=== PATIENT | male | born 1955 | race Caucasian/White ===

== ENCOUNTER 2025-04-21 08:00 | Outpatient (RCR) | payer MEDICARE, OTHER, SELFPAY ==
--- NOTE | 2025-03-07 12:52 | PTOPEVAL1 ---
Assessment and note entered by Anamaria Sorensne, PT Evaluation Information Assessment Status Evaluation Diagnosis pain in left shoulder and right knee ICD-10 Condition Codes (PT) Pain in left shoulder M25.512,Pain in right knee M25.561 Subjective Information Left shoulder hurt it playing golf about two months ago. Was swinging a golf club and had a pain but didn't quit, about 4 more holes. Reaching overhead is still somewhat bothersome. Reaching overhead and pulling himself into tractor is more painful. Right knee pain has been bothering over year off and on, actually both bother off and on. Got a steroid shot about two weeks ago and this really help both the arm and the knee. Previously, walking a lot on treadmill of out golfing would hurt knee. Getting into tractor previously right knee would hurt. Reported Pain Level Pain Score 0,0: Self Report Assessment PT Clinical Summary Pt presents with left shoulder pain and right knee pain. He received a steroid shot about two weeks ago and notes this improved both greatly. Evaluation today shows mildly reduced flexion and abduction of the left shoulder, but multiple (+) tests suggesting RTC or labral involvement. Right knee testing shows tight iliotibial band, tight quads, laterally deviated patella likely causing irritation with use. No special testing suggestive of anatomical damage for right knee. Pt will benefit from physical therapy to address deficits, correct alignment and postures, and educate/ promote independent maintenance to minimize flare ups in the future. Plan of Care Interventions Electrical Stimulation,Hot Pack/Cold Pack,Manual Therapy,Neuro Re-education,Patient/Caregiver Education,Therapeutic Activities,Therapeutic Exercise,Self-Care/Home Management,Ultrasound, Other Other Interventions Taping, Bracing PT Services Indicated Yes Treatment Frequency and 1-2x weekly x 10 visits Duration These treatments will address the objective and functional deficits as defined above. The patient will be advanced safely and appropriately in order for the patient to progress towards his/her prior level of function. Additional exercises will be introduced and as well as a comprehensive home exercise program upon discharge, if needed, ?to ensure carryover of functional gains achieved in the clinic. This treatment plan has been reviewed and agreement upon by the patient.
--- NOTE | 2025-03-07 12:52 | OPREHPOC ---
Outpatient Therapy Plan of Care This is a Multidisciplinary Plan of Care that may contain components documented by all disciplines (PT, OT, and ST.) PT Problem 1 PT Problem #1 Knowledge Deficit PT Goal 1 Goal / Goal Update Pt will be independent in HEP Pt will verbalize understanding of diagnosis and prognosis Target Visit 5 PT Problem 2 PT Problem #2 Impaired Strength PT Goal 1 Goal / Goal Update Pt will demonstrate LUE strength 5/5 in all tested planes without pain Target Visit 5 PT Problem 3 PT Problem #3 Impaired Range of Motion PT Goal 1 Goal / Goal Update LUE will demonstrate equal ROM to RUE without pain Target Visit 10 PT Problem 4 PT Problem #4 Impaired Functional Mobility PT Goal 1 Goal / Goal Update Pt will report ability to get into and out of tractor without pain Target Visit 10
--- NOTE | 2025-04-21 08:50 | PTOPDC ---
Assessment and note entered by Anamaria Sorensen, PT Evaluation Information Assessment Status Discharge Diagnosis pain in left shoulder and right knee ICD-10 Condition Codes (PT) Pain in left shoulder M25.512,Pain in right knee M25.561 Subjective Information Pt reports played gold last week and shoulder and knee did fine. Getting into and out of tractor are fine. Shoulder: 75% improved -more strength with the outer strengthening of the arm Knee: 100% improved Reported Pain Level Pain Score 0,0: Self Report Assessment PT Clinical Summary Pt reports significant improvement since starting therapy for his left shoulder and right knee. Reports knee is 100% improved, and shoulder is 75% improved with greatest pain at 1/10, and reports still needs strength with reaching out to the side and lifting. Reports he is s able to lift as heavy as he lifts up to waist height and he feels he can strengthen the rest independently. Pt's HEP was updated and he was educated on returning to therapy in the future if needed. Pt is thus being discharged from PT for completion of POC. Plan of Care PT Services Indicated No
== END 2025-04-21 08:54 | disposition home or self-care (01) ==
LOC: ANHHIPT 08:00
PROVIDERS: PCP Physician Assistant Medical; Visit Provider Physician Assistant Medical
DX: M25.512 Pain in left shoulder (principal); M25.561 Pain in right knee
CPT/HCPCS: 97110; 97112; 97161; 97530; 97750